=== PATIENT | male | born 1950 | race Asian ===

== ENCOUNTER 2022-09-27 06:20 | Inpatient (IN) | payer OTHER ==
[~2022-09-27] VITALS: Ht 167.6 cm; Wt 68.0 kg
[2022-09-27 06:25] VITALS: BP 184/70
[2022-09-27] MEDS ORDERED: IBUPROFEN 600 MG TAB PO ONE (07:35)
[2022-09-27 07:59] LABS: BASOPHILS % (AUTO) 0.3 % (0.0-2.0); EOSINOPHILS % (AUTO) 0.1 % (0.0-4.0); HEMATOCRIT 32.9 % (36-52); HEMOGLOBIN 11.2 g/dL (12.0-18.0); LYMPHOCYTES # (AUTO) 0.2 K/uL (2.0-11.5); LYMPHOCYTES % (AUTO) 3.6 % (20.5-51.1); MEAN CORPUSCULAR HEMOGLOBIN 31 pg (27-31); MEAN CORPUSCULAR HGB CONC 34 g/dL (33-37); MEAN CORPUSCULAR VOLUME 91.1 fL (80-94); MONOCYTES # (AUTO) 0.5 K/uL (0.8-1.0); MONOCYTES % (AUTO) 8.4 % (1.7-9.3); NEUTROPHILS # (AUTO) 5.3 K/uL (1.8-7.7); NEUTROPHILS % (AUTO) 87.6 % (42.2-75.2); PLATELET COUNT (AUTO) 193 K/uL (140-450); RED BLOOD CELL COUNT(AUTO) 3.61 MIL/uL (4.20-6.10); RED CELL DISTRIBUTION WIDTH 15.6 % (11.6-13.7)
[2022-09-27] MEDS ORDERED: NITROGLYCERIN 2% 1 GM PKT TP ONE (08:00)
[2022-09-27] MEDS ORDERED: FUROSEMIDE 40 MG/4 ML VIAL IVP ONE (08:00)
[2022-09-27] MEDS ORDERED: cefTRIAXone 1,000 MG VIAL ONE (08:09)
[2022-09-27 08:24] LABS: PROTHROMBIN TIME 12.2 secs (10.8-13.4)
[2022-09-27] MEDS ORDERED: DILTIAZEM 25 MG/5 ML VIAL IVP ONE (08:50)
[2022-09-27 09:11] LABS: ALBUMIN 3.7 g/dL (3.4-5.0); ANION GAP 16.7 (8-16); ASPARTATE AMINOTRANSFERASE 23 U/L (15-37); CARBON DIOXIDE 28.9 mmol/L (21-32); CHLORIDE 94 mmol/L (98-107); GFR ARICAN-AMERICAN 7 mL/min (>90); GLUCOSE 172 mg/dL (74-106); POTASSIUM 4.6 mmol/L (3.5-5.1); SODIUM SERUM 135 mmol/L (136-145); TOTAL BILIRUBIN 0.7 mg/dL (0.0-1.0)
[2022-09-27 09:13] LABS: UREA NITROGEN, BLOOD 66 mg/dL (7-18)
[2022-09-27 09:16] LABS: CREATININE 9.7 mg/dL (0.6-1.3)
[2022-09-27] MEDS ORDERED: APIX2.5 PO (10:27)
[2022-09-27] MEDS ORDERED: EMLAC TP (10:27)
[2022-09-27] MEDS ORDERED: ATOR20TA40 PO (10:27)
[2022-09-27] MEDS ORDERED: BISA5TAB6 PO (10:27)
[2022-09-27] MEDS ORDERED: GLIP10TA12 PO (10:27)
[2022-09-27] MEDS ORDERED: [UNRECOGNIZED DRUG - CODE] PO (10:27)
[2022-09-27] MEDS ORDERED: NIFE60TA39 PO (10:27)
[2022-09-27] MEDS ORDERED: VITA1TAB44 PO (10:27)
[2022-09-27] MEDS ORDERED: NEP PO (10:27)
[2022-09-27] MEDS ORDERED: FURO40TA9 PO (10:27)
[2022-09-27] MEDS ORDERED: CARV3.122 PO (10:27)
[2022-09-27] MEDS ORDERED: COROTSUS (10:27)
[2022-09-27] MEDS ORDERED: NIFE60TE79 PO (10:27)
[2022-09-27] MEDS ORDERED: LATA2.5S14 OP (10:27)
[2022-09-27] MEDS ORDERED: INSU-1165 SUBQ (10:27)
[2022-09-27] MEDS ORDERED: CALC667T8 PO (10:27)
[2022-09-27] MEDS ORDERED: CALC667C3 PO (10:27)
[2022-09-27] MEDS ORDERED: LEVE500T18 PO (10:27)
[2022-09-27] MEDS ORDERED: GLIP5TER PO (10:27)
[2022-09-27] MEDS ORDERED: ONDANSETRON 4 MG/2 ML VIAL IVP PRN (14:20)
[2022-09-27] MEDS ORDERED: HYDROcodone/APAP 5/325 MG 1 TAB TAB PO PRN ×2 (14:20)
[2022-09-27] MEDS ORDERED: LORazepam 2 MG/ML VIAL IVP PRN ×2 (14:20)
[2022-09-27] MEDS ORDERED: DEXTROSE 50% 50 ML SYR IVP PRN (14:30)
[2022-09-27 16:00] VITALS: BP 157/98
[2022-09-27] MEDS: BLOOD GLUCOSE MONITORING 1 DEV DEV FS SCH ×2 (19:00→20:08)
[2022-09-27] MEDS: ACETAMINOPHEN 325 MG TAB PO PRN (19:49)
[2022-09-27] MEDS ORDERED: ALBUTEROL SULFATE/IPRATROPIU 3 ML SOL IH PRN (19:55)
[2022-09-27 20:00] VITALS: BP 181/113
[2022-09-27] MEDS: APIXABAN 2.5 MG TAB PO SCH (20:05)
[2022-09-27] MEDS: LEVALBUTEROL 1.25 MG/0.5 ML NEBU INH PRN (20:23)
[2022-09-27] MEDS: IPRATROPIUM 0.02% 0.5 MG/2.5 ML NEBU INH PRN (20:23)
[2022-09-27] MEDS: AMIODARONE 200 MG TAB PO SCH (20:32)
[2022-09-27] MEDS: carvediloL 6.25 MG TAB PO SCH (20:33)
[2022-09-27] MEDS: hydrALAZINE 20 MG/ML VIAL IVP PRN (23:39)
[2022-09-28] VITALS (7 sets, daily range): BP systolic 90–179; BP diastolic 42–100
[2022-09-28] MEDS: IPRATROPIUM 0.02% 0.5 MG/2.5 ML NEBU INH PRN (00:23)
[2022-09-28] MEDS: LEVALBUTEROL 1.25 MG/0.5 ML NEBU INH PRN (00:23)
[2022-09-28] MEDS: IBUPROFEN 400 MG TAB PO PRN (01:01)
[2022-09-28] MEDS: FUROSEMIDE 40 MG/4 ML VIAL IVP SCH ×2 (01:01→01:07)
[2022-09-28] MEDS: ACETAMINOPHEN 325 MG TAB PO PRN ×3 (04:02→20:21)
[2022-09-28 06:30] LABS: ANION GAP 14.6 (8-16); CARBON DIOXIDE 30.3 mmol/L (21-32); POTASSIUM 4.9 mmol/L (3.5-5.1)
[2022-09-28 06:56] LABS: CREATININE 7.2 mg/dL (0.6-1.3)
[2022-09-28 06:57] LABS: BASOPHILS % (AUTO) 0.2 % (0.0-2.0); HEMATOCRIT 31.9 % (36-52); LYMPHOCYTES # (AUTO) 0.3 K/uL (2.0-11.5); MEAN CORPUSCULAR HEMOGLOBIN 32 pg (27-31); MEAN CORPUSCULAR HGB CONC 34 g/dL (33-37); MONOCYTES # (AUTO) 0.6 K/uL (0.8-1.0); MONOCYTES % (AUTO) 6.5 % (1.7-9.3); NEUTROPHILS # (AUTO) 8.5 K/uL (1.8-7.7); NEUTROPHILS % (AUTO) 90.3 % (42.2-75.2); PLATELET COUNT (AUTO) 151 K/uL (140-450); RED BLOOD CELL COUNT(AUTO) 3.46 MIL/uL (4.20-6.10); RED CELL DISTRIBUTION WIDTH 15.6 % (11.6-13.7); WHITE BLOOD COUNT (AUTO) 9.4 K/uL (4.8-10.8)
[2022-09-28] MEDS: BLOOD GLUCOSE MONITORING 1 DEV DEV FS SCH ×4 (07:18→20:18)
[2022-09-28] MEDS: NIFEdipine 60 MG TABER PO SCH (08:27)
[2022-09-28] MEDS: carvediloL 6.25 MG TAB PO SCH ×2 (08:32→20:19)
[2022-09-28] MEDS: ATORVASTATIN 20 MG TAB PO SCH (08:34)
[2022-09-28] MEDS: levETIRAcetam 500 MG TAB PO SCH (08:34)
[2022-09-28] MEDS: VIT-B COMP/VIT-C/FOLIC ACID 1 TAB PO SCH (08:35)
[2022-09-28] MEDS: AMIODARONE 200 MG TAB PO SCH ×2 (08:35→20:18)
[2022-09-28] MEDS: APIXABAN 2.5 MG TAB PO SCH ×2 (08:42→20:19)
[2022-09-28] MEDS ORDERED: FUROSEMIDE 40 MG/4 ML VIAL IVP SCH ×2 (09:00)
[2022-09-28] MEDS ORDERED: AZITHROMYCIN 250 MG TAB PO SCH (09:00)
[2022-09-28] MEDS ORDERED: carvediloL 12.5 MG TAB PO SCH (09:00)
[2022-09-28] MEDS ORDERED: FUROSEMIDE 40 MG TAB PO SCH (09:00)
[2022-09-28] MEDS ORDERED: MECLIZINE 25 MG TAB PO PRN (11:05)
[2022-09-28] MEDS: PIPERACILLIN/TAZOBACTAM 2.25 GM in DEXTROSE 5% 50 ML IV SCH ×2 (12:33→20:18)
[2022-09-28] MEDS: INSULIN LISPRO SLIDING SCALE 100 UNITS/ML VIAL SUBQ PRN ×3 (13:02→20:20)
[2022-09-29] VITALS: BP 107/54
[2022-09-29 04:00] VITALS: BP 122/54
[2022-09-29] MEDS: PIPERACILLIN/TAZOBACTAM 2.25 GM in DEXTROSE 5% 50 ML IV SCH ×3 (05:15→21:00)
[2022-09-29] MEDS: IBUPROFEN 400 MG TAB PO PRN (05:49)
[2022-09-29 06:33] LABS: BASOPHILS % (AUTO) 0.3 % (0.0-2.0); EOSINOPHILS % (AUTO) 0.2 % (0.0-4.0); HEMATOCRIT 29.6 % (36-52); HEMOGLOBIN 10.1 g/dL (12.0-18.0); LYMPHOCYTES # (AUTO) 0.4 K/uL (2.0-11.5); LYMPHOCYTES % (AUTO) 4.6 % (20.5-51.1); MEAN CORPUSCULAR HEMOGLOBIN 31 pg (27-31); MEAN CORPUSCULAR HGB CONC 34 g/dL (33-37); MEAN CORPUSCULAR VOLUME 91.5 fL (80-94); MONOCYTES # (AUTO) 0.5 K/uL (0.8-1.0); MONOCYTES % (AUTO) 5.6 % (1.7-9.3); NEUTROPHILS # (AUTO) 7.9 K/uL (1.8-7.7); NEUTROPHILS % (AUTO) 89.3 % (42.2-75.2); PLATELET COUNT (AUTO) 153 K/uL (140-450); RED BLOOD CELL COUNT(AUTO) 3.23 MIL/uL (4.20-6.10); RED CELL DISTRIBUTION WIDTH 15.6 % (11.6-13.7); WHITE BLOOD COUNT (AUTO) 8.9 K/uL (4.8-10.8)
[2022-09-29] MEDS: BLOOD GLUCOSE MONITORING 1 DEV DEV FS SCH ×4 (06:40→20:58)
[2022-09-29 06:51] LABS: MAGNESIUM 2.6 mg/dL (1.8-2.4); PHOSPHORUS 5.9 mg/dL (2.5-4.9)
[2022-09-29 07:18] LABS: ANION GAP 18.3 (8-16); CARBON DIOXIDE 28.2 mmol/L (21-32); POTASSIUM 5.5 mmol/L (3.5-5.1)
[2022-09-29 07:54] LABS: CREATININE 9.5 mg/dL (0.6-1.3)
[2022-09-29 08:00] VITALS: BP 112/60
[2022-09-29] MEDS: NIFEdipine 60 MG TABER PO SCH (09:02)
[2022-09-29] MEDS: VIT-B COMP/VIT-C/FOLIC ACID 1 TAB PO SCH (09:02)
[2022-09-29] MEDS: AMIODARONE 200 MG TAB PO SCH ×2 (09:03→21:00)
[2022-09-29] MEDS: APIXABAN 2.5 MG TAB PO SCH ×2 (09:05→21:08)
[2022-09-29] MEDS: carvediloL 6.25 MG TAB PO SCH ×2 (09:08→21:01)
[2022-09-29] MEDS: ATORVASTATIN 20 MG TAB PO SCH (09:13)
[2022-09-29] MEDS: levETIRAcetam 500 MG TAB PO SCH (09:25)
[2022-09-29 12:00] VITALS: BP 105/53
[2022-09-29] MEDS: INSULIN LISPRO SLIDING SCALE 100 UNITS/ML VIAL SUBQ PRN (12:12)
[2022-09-29 16:00] VITALS: BP 101/56
[2022-09-29 20:00] VITALS: BP 128/70
[2022-09-30] VITALS: BP 122/68
[2022-09-30 04:00] VITALS: BP 125/65
[2022-09-30] MEDS: PIPERACILLIN/TAZOBACTAM 2.25 GM in DEXTROSE 5% 50 ML IV SCH ×3 (06:14→20:51)
[2022-09-30 06:47] LABS: ANION GAP 14.2 (8-16); CARBON DIOXIDE 30.2 mmol/L (21-32); POTASSIUM 4.4 mmol/L (3.5-5.1)
[2022-09-30 06:54] LABS: BASOPHILS % (AUTO) 0.1 % (0.0-2.0); EOSINOPHILS # (AUTO) 0.1 K/uL (0-0.4); HEMATOCRIT 29.9 % (36-52); HEMOGLOBIN 10.2 g/dL (12.0-18.0); LYMPHOCYTES # (AUTO) 0.6 K/uL (2.0-11.5); LYMPHOCYTES % (AUTO) 11.9 % (20.5-51.1); MEAN CORPUSCULAR HEMOGLOBIN 31 pg (27-31); MEAN CORPUSCULAR HGB CONC 34 g/dL (33-37); MEAN CORPUSCULAR VOLUME 91.4 fL (80-94); MONOCYTES # (AUTO) 0.4 K/uL (0.8-1.0); MONOCYTES % (AUTO) 8.7 % (1.7-9.3); NEUTROPHILS # (AUTO) 3.7 K/uL (1.8-7.7); NEUTROPHILS % (AUTO) 77.3 % (42.2-75.2); PLATELET COUNT (AUTO) 171 K/uL (140-450); RED BLOOD CELL COUNT(AUTO) 3.27 MIL/uL (4.20-6.10); RED CELL DISTRIBUTION WIDTH 15.9 % (11.6-13.7); WHITE BLOOD COUNT (AUTO) 4.8 K/uL (4.8-10.8)
[2022-09-30 06:56] LABS: MAGNESIUM 2.5 mg/dL (1.8-2.4); PHOSPHORUS 4.9 mg/dL (2.5-4.9)
[2022-09-30] MEDS: BLOOD GLUCOSE MONITORING 1 DEV DEV FS SCH ×4 (06:56→21:00)
[2022-09-30 06:59] LABS: CREATININE 6.7 mg/dL (0.6-1.3)
[2022-09-30 08:00] VITALS: BP 141/77
[2022-09-30] MEDS: levETIRAcetam 500 MG TAB PO SCH (09:00)
[2022-09-30] MEDS: VIT-B COMP/VIT-C/FOLIC ACID 1 TAB PO SCH (09:53)
[2022-09-30] MEDS: carvediloL 6.25 MG TAB PO SCH ×2 (09:53→21:00)
[2022-09-30] MEDS: ATORVASTATIN 20 MG TAB PO SCH (09:54)
[2022-09-30] MEDS: AMIODARONE 200 MG TAB PO SCH ×2 (09:55→20:53)
[2022-09-30] MEDS: APIXABAN 2.5 MG TAB PO SCH ×2 (09:55→20:59)
[2022-09-30] MEDS: NIFEdipine 60 MG TABER PO SCH (09:56)
[2022-09-30 12:00] VITALS: BP 150/69
[2022-09-30 16:00] VITALS: BP 160/58
[2022-09-30 20:00] VITALS: BP 110/61
[2022-09-30] MEDS: INSULIN LISPRO SLIDING SCALE 100 UNITS/ML VIAL SUBQ PRN (21:00)
[2022-10-01] VITALS: BP 110/61
[2022-10-01 04:00] VITALS: BP 107/52
[2022-10-01] MEDS: PIPERACILLIN/TAZOBACTAM 2.25 GM in DEXTROSE 5% 50 ML IV SCH ×3 (04:16→20:53)
[2022-10-01] MEDS: hydrALAZINE 25 MG TAB PO SCH ×4 (05:07→17:58)
[2022-10-01] MEDS: BLOOD GLUCOSE MONITORING 1 DEV DEV FS SCH ×4 (06:42→21:12)
[2022-10-01 06:58] LABS: BASOPHILS % (AUTO) 0.6 % (0.0-2.0); EOSINOPHILS # (AUTO) 0.2 K/uL (0-0.4); EOSINOPHILS % (AUTO) 3.6 % (0.0-4.0); HEMOGLOBIN 9.6 g/dL (12.0-18.0); LYMPHOCYTES # (AUTO) 0.8 K/uL (2.0-11.5); LYMPHOCYTES % (AUTO) 19.3 % (20.5-51.1); MEAN CORPUSCULAR HEMOGLOBIN 31 pg (27-31); MEAN CORPUSCULAR HGB CONC 35 g/dL (33-37); MEAN CORPUSCULAR VOLUME 91.1 fL (80-94); MONOCYTES # (AUTO) 0.5 K/uL (0.8-1.0); MONOCYTES % (AUTO) 12.2 % (1.7-9.3); NEUTROPHILS # (AUTO) 2.7 K/uL (1.8-7.7); NEUTROPHILS % (AUTO) 64.3 % (42.2-75.2); PLATELET COUNT (AUTO) 168 K/uL (140-450); RED BLOOD CELL COUNT(AUTO) 3.07 MIL/uL (4.20-6.10); RED CELL DISTRIBUTION WIDTH 15.1 % (11.6-13.7); WHITE BLOOD COUNT (AUTO) 4.2 K/uL (4.8-10.8)
[2022-10-01 07:05] LABS: ANION GAP 15.4 (8-16); CARBON DIOXIDE 29.7 mmol/L (21-32); POTASSIUM 5.1 mmol/L (3.5-5.1)
[2022-10-01 07:11] LABS: MAGNESIUM 2.7 mg/dL (1.8-2.4); PHOSPHORUS 4.9 mg/dL (2.5-4.9)
[2022-10-01 07:19] LABS: CREATININE 9.1 mg/dL (0.6-1.3)
[2022-10-01] MEDS: IPRATROPIUM 0.02% 0.5 MG/2.5 ML NEBU INH PRN (07:49)
[2022-10-01] MEDS: LEVALBUTEROL 1.25 MG/0.5 ML NEBU INH PRN (07:49)
[2022-10-01 08:00] VITALS: BP 105/55
[2022-10-01] MEDS: AMIODARONE 200 MG TAB PO SCH ×2 (09:00→20:54)
[2022-10-01] MEDS: NIFEdipine 60 MG TABER PO SCH (09:00)
[2022-10-01] MEDS: VIT-B COMP/VIT-C/FOLIC ACID 1 TAB PO SCH (10:58)
[2022-10-01] MEDS: levETIRAcetam 500 MG TAB PO SCH (10:58)
[2022-10-01] MEDS: ATORVASTATIN 20 MG TAB PO SCH (10:59)
[2022-10-01] MEDS: APIXABAN 2.5 MG TAB PO SCH ×2 (10:59→20:56)
[2022-10-01] MEDS: carvediloL 6.25 MG TAB PO SCH ×2 (11:04→20:58)
[2022-10-01] MEDS: INSULIN LISPRO SLIDING SCALE 100 UNITS/ML VIAL SUBQ PRN ×2 (11:19→16:18)
[2022-10-01 12:00] VITALS: BP 127/63
[2022-10-01] MEDS: IPRATROPIUM 0.02% 0.5 MG/2.5 ML NEBU INH SCH ×2 (13:21→19:38)
[2022-10-01] MEDS: LEVALBUTEROL 1.25 MG/0.5 ML NEBU INH SCH ×2 (13:21→19:38)
[2022-10-01 16:00] VITALS: BP 131/60
[2022-10-01 20:00] VITALS: BP 141/63
[2022-10-02] VITALS: BP 166/70
[2022-10-02 04:00] VITALS: BP 169/71
[2022-10-02] MEDS: PIPERACILLIN/TAZOBACTAM 2.25 GM in DEXTROSE 5% 50 ML IV SCH ×3 (05:50→21:29)
[2022-10-02] MEDS: hydrALAZINE 25 MG TAB PO SCH ×4 (05:50→17:32)
[2022-10-02] MEDS: BLOOD GLUCOSE MONITORING 1 DEV DEV FS SCH ×4 (06:43→21:24)
[2022-10-02 06:50] LABS: BASOPHILS # (AUTO) 0.1 K/uL (0.00-0.22); EOSINOPHILS # (AUTO) 0.3 K/uL (0-0.4); EOSINOPHILS % (AUTO) 4.8 % (0.0-4.0); HEMATOCRIT 27.4 % (36-52); HEMOGLOBIN 9.3 g/dL (12.0-18.0); LYMPHOCYTES # (AUTO) 0.9 K/uL (2.0-11.5); LYMPHOCYTES % (AUTO) 16.7 % (20.5-51.1); MEAN CORPUSCULAR HEMOGLOBIN 31 pg (27-31); MEAN CORPUSCULAR HGB CONC 34 g/dL (33-37); MEAN CORPUSCULAR VOLUME 90.9 fL (80-94); MONOCYTES # (AUTO) 0.6 K/uL (0.8-1.0); MONOCYTES % (AUTO) 11.7 % (1.7-9.3); NEUTROPHILS # (AUTO) 3.5 K/uL (1.8-7.7); NEUTROPHILS % (AUTO) 65.8 % (42.2-75.2); PLATELET COUNT (AUTO) 172 K/uL (140-450); RED BLOOD CELL COUNT(AUTO) 3.02 MIL/uL (4.20-6.10); RED CELL DISTRIBUTION WIDTH 15.5 % (11.6-13.7); WHITE BLOOD COUNT (AUTO) 5.4 K/uL (4.8-10.8)
[2022-10-02 07:00] LABS: ANION GAP 17.8 (8-16); CARBON DIOXIDE 27.1 mmol/L (21-32); POTASSIUM 4.9 mmol/L (3.5-5.1)
[2022-10-02 07:01] LABS: MAGNESIUM 2.6 mg/dL (1.8-2.4); PHOSPHORUS 6.1 mg/dL (2.5-4.9)
[2022-10-02 07:11] LABS: CREATININE 10.4 mg/dL (0.6-1.3)
[2022-10-02] MEDS: IPRATROPIUM 0.02% 0.5 MG/2.5 ML NEBU INH SCH ×3 (07:26→19:00)
[2022-10-02] MEDS: LEVALBUTEROL 1.25 MG/0.5 ML NEBU INH SCH ×3 (07:26→19:00)
[2022-10-02 08:00] VITALS: BP 184/79
[2022-10-02] MEDS: levETIRAcetam 500 MG TAB PO SCH (08:11)
[2022-10-02] MEDS: VIT-B COMP/VIT-C/FOLIC ACID 1 TAB PO SCH (08:11)
[2022-10-02] MEDS: carvediloL 6.25 MG TAB PO SCH ×2 (08:29→21:36)
[2022-10-02] MEDS: NIFEdipine 60 MG TABER PO SCH (08:29)
[2022-10-02] MEDS: AMIODARONE 200 MG TAB PO SCH (08:30)
[2022-10-02] MEDS: APIXABAN 2.5 MG TAB PO SCH ×2 (08:32→21:21)
[2022-10-02] MEDS: ATORVASTATIN 20 MG TAB PO SCH (08:32)
[2022-10-02] MEDS: hydrALAZINE 20 MG/ML VIAL IVP PRN (11:10)
[2022-10-02] MEDS: INSULIN LISPRO SLIDING SCALE 100 UNITS/ML VIAL SUBQ PRN ×3 (11:43→21:27)
[2022-10-02 12:00] VITALS: BP 161/64
[2022-10-02 16:00] VITALS: BP 125/61
[2022-10-02] MEDS ORDERED: VANCOMYCIN PER PHARMACY MC PRN (17:20)
[2022-10-02] MEDS ORDERED: VANCOMYCIN 1GM/DEXT 5% PREMIX 200 ML IV ONE (17:40)
[2022-10-02] MEDS ORDERED: VANCOMYCIN 1,000 MG VIAL ONE (18:04)
[2022-10-02 20:00] VITALS: BP 116/53
[2022-10-03] VITALS: BP 106/50
[2022-10-03 04:00] VITALS: BP 125/54
[2022-10-03] MEDS: PIPERACILLIN/TAZOBACTAM 2.25 GM in DEXTROSE 5% 50 ML IV SCH ×2 (04:38→15:23)
[2022-10-03] MEDS: hydrALAZINE 25 MG TAB PO SCH ×4 (06:05→18:15)
[2022-10-03] MEDS: BLOOD GLUCOSE MONITORING 1 DEV DEV FS SCH ×2 (06:55→12:03)
[2022-10-03] MEDS: IPRATROPIUM 0.02% 0.5 MG/2.5 ML NEBU INH SCH ×2 (07:00→13:00)
[2022-10-03] MEDS: LEVALBUTEROL 1.25 MG/0.5 ML NEBU INH SCH ×2 (07:00→13:00)
[2022-10-03 07:13] LABS: CARBON DIOXIDE 28.2 mmol/L (21-32); POTASSIUM 4.2 mmol/L (3.5-5.1)
[2022-10-03 07:16] LABS: BASOPHILS % (AUTO) 0.8 % (0.0-2.0); EOSINOPHILS # (AUTO) 0.2 K/uL (0-0.4); EOSINOPHILS % (AUTO) 4.5 % (0.0-4.0); HEMATOCRIT 28.6 % (36-52); HEMOGLOBIN 9.8 g/dL (12.0-18.0); LYMPHOCYTES # (AUTO) 0.8 K/uL (2.0-11.5); LYMPHOCYTES % (AUTO) 17.6 % (20.5-51.1); MEAN CORPUSCULAR HEMOGLOBIN 31 pg (27-31); MEAN CORPUSCULAR HGB CONC 34 g/dL (33-37); MEAN CORPUSCULAR VOLUME 90.1 fL (80-94); MONOCYTES # (AUTO) 0.6 K/uL (0.8-1.0); MONOCYTES % (AUTO) 13.9 % (1.7-9.3); NEUTROPHILS # (AUTO) 2.9 K/uL (1.8-7.7); NEUTROPHILS % (AUTO) 63.2 % (42.2-75.2); PLATELET COUNT (AUTO) 212 K/uL (140-450); RED BLOOD CELL COUNT(AUTO) 3.18 MIL/uL (4.20-6.10); RED CELL DISTRIBUTION WIDTH 15.1 % (11.6-13.7); WHITE BLOOD COUNT (AUTO) 4.6 K/uL (4.8-10.8)
[2022-10-03 07:21] LABS: MAGNESIUM 2.5 mg/dL (1.8-2.4); PHOSPHORUS 5.6 mg/dL (2.5-4.9)
[2022-10-03 07:36] LABS: CREATININE 8.3 mg/dL (0.6-1.3)
[2022-10-03 08:00] VITALS: BP 135/59
[2022-10-03] MEDS ORDERED: AMIODARONE 200 MG TAB PO SCH (09:00)
[2022-10-03] MEDS: ATORVASTATIN 20 MG TAB PO SCH (09:15)
[2022-10-03] MEDS: NIFEdipine 60 MG TABER PO SCH (09:15)
[2022-10-03] MEDS: carvediloL 6.25 MG TAB PO SCH (09:15)
[2022-10-03] MEDS: APIXABAN 2.5 MG TAB PO SCH (09:16)
[2022-10-03] MEDS: VIT-B COMP/VIT-C/FOLIC ACID 1 TAB PO SCH (09:16)
[2022-10-03] MEDS: levETIRAcetam 500 MG TAB PO SCH (09:17)
[2022-10-03] MEDS: INSULIN LISPRO SLIDING SCALE 100 UNITS/ML VIAL SUBQ PRN (12:06)
[2022-10-03] MEDS ORDERED: guaiFENesin/CODEINE 100/10MG 5 ML UDC PO PRN (14:05)
[2022-10-03] MEDS ORDERED: AMIO200T25 PO (14:29)
[2022-10-03] MEDS ORDERED: CARV12.52 PO (14:29)
[2022-10-03 16:14] VITALS: BP 135/59
== END 2022-10-03 18:31 | DRG 871 ==
LOC: MED 06:20 → MTU 11:55
PROVIDERS: ADMIT Internal Medicine; ATTEND Internal Medicine
PROC: 5A1D70Z Performance of Urinary Filtration, Intermittent, Less than 6 Hours Per Day (ICD-10-PCS; 2022-09-27)
PROC: 5A09357 Assistance with Respiratory Ventilation, Less than 24 Consecutive Hours, Continuous Positive Airway Pressure (ICD-10-PCS; 2022-09-28)
PROC: 5A1D70Z Performance of Urinary Filtration, Intermittent, Less than 6 Hours Per Day (ICD-10-PCS; 2022-09-28)
PROC: 4A10X4Z Monitoring of Central Nervous Electrical Activity, External Approach (ICD-10-PCS; principal; 2022-09-29)
PROC: 5A09357 Assistance with Respiratory Ventilation, Less than 24 Consecutive Hours, Continuous Positive Airway Pressure (ICD-10-PCS; 2022-09-29)
PROC: 5A09357 Assistance with Respiratory Ventilation, Less than 24 Consecutive Hours, Continuous Positive Airway Pressure (ICD-10-PCS; 2022-09-30)
PROC: 5A1D70Z Performance of Urinary Filtration, Intermittent, Less than 6 Hours Per Day (ICD-10-PCS; 2022-10-02)
DX: A41.9 Sepsis, unspecified organism (principal); G93.41 Metabolic encephalopathy; J96.01 Acute respiratory failure with hypoxia; J18.9 Pneumonia, unspecified organism; I50.33 Acute on chronic diastolic (congestive) heart failure; N18.6 End stage renal disease; I13.2 Hypertensive heart and chronic kidney disease with heart failure and with stage 5 chronic kidney disease, or end stage renal disease; Z20.822 Contact with and (suspected) exposure to COVID-19; E11.22 Type 2 diabetes mellitus with diabetic chronic kidney disease; G40.909 Epilepsy, unspecified, not intractable, without status epilepticus; I70.90 Unspecified atherosclerosis; I48.0 Paroxysmal atrial fibrillation; W07.XXXA Fall from chair, initial encounter; Z99.2 Dependence on renal dialysis; Y93.89 Activity, other specified; Y92.89 Other specified places as the place of occurrence of the external cause; Y99.8 Other external cause status; Z79.899 Other long term (current) drug therapy
CPT/HCPCS: 36415; 36600; 70450; 71045; 71250; 72170; 72192; 76770; 80048; 80053; 82550; 82553; 82803; 82948; 83605; 83735; 83880; 84100; 84484; 85025; 85610; 85730; 87040; 87081; 93005; 93880; 94640; 96374; 96375; 97110; 97112; 97116; 97530; 99291; G0482; J0360; J0696; J1815; J1940; J2543; J3370; J7060; J7612; J7644; Q0092